=== PATIENT | female | born 1965 | race Caucasian/White ===

== ENCOUNTER 2018-07-08 10:33 | Day surgery (SDC) | payer BC, OTHER ==
[~2018-07-08] VITALS: Ht 172.7 cm; Wt 74.2 kg
[~2018-07-08 10:33] MED LIST: DIPHENHYDRAMINE 50 MG/ML, 1ML IVPush PRN; HALOPERIDOL 5 MG/ML IV PRN; HYDROmorphone 2 MG/ML, 1ML IVPush PRN; LABETALOL 5MG/ML, 20ML IV PRN; MEPERIDINE/PF 25MG/0.5ML IVPush PRN; METOPROLOL 1 MG/ML, 5ML IV PRN; OXYcodone 5 MG/5 ML ORAL.SOL UDC PO PRN; PROCHLORPERAZINE 5 MG/ML, 2ML IV PRN; PROMETHAZINE 25 MG/ML, 1ML IV PRN; THYR120T PO; hydrALAzine 20 MG/ML, 1ML IV PRN
[2018-07-08] MEDS ORDERED: LACTATED RINGERS 1,000 ML IV SCH (10:45)
[2018-07-08] MEDS ORDERED: GABAPENTIN 300 MG CAPSULE PO ONE (11:00)
[2018-07-08] MEDS ORDERED: ACETAMINOPHEN 500 MG TABLET PO ONE (11:00)
[2018-07-08 11:13] LABS: HCG UR SG 1.022 (1.003-1.030)
[2018-07-08] MEDS ORDERED: FENTANYL PF 100 MCG/2ML ONE ×2 (12:40→13:43)
[2018-07-08] MEDS ORDERED: KETOROLAC 30 MG/1 ML ONE (12:45)
[2018-07-08] MEDS ORDERED: DEXAMETHASONE 4 MG/ML, 5ML ONE (12:45)
[2018-07-08] MEDS ORDERED: PROPOFOL 10 MG/ML, 20ML ONE ×2 (12:45→13:07)
[2018-07-08] MEDS ORDERED: CEFAZOLIN 1,000 MG ONE (13:07)
[2018-07-08] MEDS ORDERED: ONDANSETRON 2MG/ML, 2ML ONE (13:07)
[2018-07-08] MEDS ORDERED: SILVER NITRATE STICK TP ONE (13:22)
[2018-07-08] MEDS ORDERED: OXYcodone 5 MG/5 ML ORAL.SOL UDC ONE (13:39)
[2018-07-08] MEDS: FENTANYL PF 100 MCG/2ML IV PRN ×2 (13:44→13:52)
== END 2018-07-08 17:15 | disposition home or self-care (01) ==
LOC: OUT 10:33 → MERGE 12:30 → OUT 17:15
PROVIDERS: ATTEND Obstetrics & Gynecology
DX: N93.8 Other specified abnormal uterine and vaginal bleeding (principal); E03.9 Hypothyroidism, unspecified
CPT/HCPCS: 36415; 58563; 81025; 86850; 86900; J0690; J1100; J1885; J2405; J2704; J3010; J7120